=== PATIENT | female | born 1985 | race Caucasian/White ===

== ENCOUNTER 2021-10-02 20:48 | Emergency (ER) | payer BC, OTHER ==
[2021-10-02] MEDS ORDERED: Acetaminophen 325 MG Tab PO ONE (22:52)
[2021-10-02] MEDS ORDERED: Ibuprofen 600 MG Tab PO ONE (22:52)
[2021-10-03 00:54] VITALS: BP 132/75; PULSE 82
== END 2021-10-03 00:52 | disposition home or self-care (01) ==
LOC: MW.ED 20:48
DX: S80.11XA Contusion of right lower leg, initial encounter (principal); S60.211A Contusion of right wrist, initial encounter; Z79.899 Other long term (current) drug therapy; Z86.16 Personal history of COVID-19; Y04.0XXA Assault by unarmed brawl or fight, initial encounter; Y99.0 Civilian activity done for income or pay
CPT/HCPCS: 73090; 73130; 99283; A9270; 99282